=== PATIENT | male | born 1970 | race Asian ===

== ENCOUNTER 2017-03-07 17:00 | Outpatient (RCR) | payer OTHER | END 2017-03-08 15:09 | LOC: WSPT 17:00 | DX: M47.816 Spondylosis without myelopathy or radiculopathy, lumbar region (principal); M13.0 Polyarthritis, unspecified; F43.12 Post-traumatic stress disorder, chronic; F42.9 Obsessive-compulsive disorder, unspecified; R69 Illness, unspecified; Z98.890 Other specified postprocedural states | CPT/HCPCS: G8978-GP; G8979-GP; G8980-GP ==

== ENCOUNTER 2021-01-03 22:02 | Emergency (ER) | payer OTHER ==
[~2021-01-03] VITALS: Ht 170.2 cm; Wt 76.4 kg
[2021-01-03] MEDS ORDERED: BUSPAR5 MG PO (23:11)
[2021-01-03] MEDS ORDERED: GEODON 20 MG20 MG PO (23:12)
[2021-01-03] MEDS ORDERED: DEPAKOTE 125MG125 MG PO (23:12)
[2021-01-03] MEDS ORDERED: CYMBALTA 20MG20 MG PO (23:13)
[2021-01-03] MEDS ORDERED: ATARAX 10MG10 MG/TAB PO (23:14)
[2021-01-04] MEDS ORDERED: MOBIC 7.5MG7.5 MG PO (00:21)
[2021-01-04] MEDS ORDERED: FLEXERIL 1010 MG/TAB PO (00:21)
[2021-01-04 01:20] VITALS: BP 129/86; PULSE 87; TEMP 98.3
== END 2021-01-04 00:45 | disposition home or self-care (01) ==
LOC: COL.ER 22:02
DX: M54.5 Low back pain (principal); F41.9 Anxiety disorder, unspecified; F31.9 Bipolar disorder, unspecified; Z79.899 Other long term (current) drug therapy
CPT/HCPCS: J1885

== ENCOUNTER → 2023-08-27 | Outpatient (CLI) | payer OTHER ==
[~2023-08-27] MED LIST: ATARAX 10MG10 MG/TAB PO; BUSPAR5 MG PO; CYMBALTA 20MG20 MG PO; DEPAKOTE 125MG125 MG PO; FLEXERIL 1010 MG/TAB PO; GEODON 20 MG20 MG PO; MOBIC 7.5MG7.5 MG PO
[2023-08-27 15:08] LABS: BASO % 0.6 % (0.0-2.0); EOS # 0.1 K/mm3 (0.0-0.7); EOS % 1.7 % (0.0-4.0); GRAN # 2.4 K/mm3 (1.4-6.5); HEMATOCRIT 42.1 % (42.0-52.0); HEMOGLOBIN 14.3 g/dl (13.5-18.0); LYMPH # 2.3 K/mm3 (1.2-3.4); LYMPH % 43.7 % (20.0-51.0); MEAN CELL VOLUME 94 fl (80.0-100.0); MEAN CORPUSCULAR HEMOGLOBIN 32 pg (27-31); MEAN CORPUSCULAR HGB CONC 34 g/dl (33.0-37.0); MEAN PLATELET VOLUME 9.5 fl (7.4-10.4); MONO # 0.4 K/mm3 (0.1-0.6); PLATELET COUNT 247 K/mm3 (130-400); RED BLOOD COUNT 4.48 M/mm3 (4.20-5.60); REDCELL DISTRIBUTION WIDTH-CV 12.2 % (11.5-14.5)
[2023-08-27 15:23] LABS: ALBUMIN 3.6 gm/dL (3.5-5.0); BILIRUBIN,DIRECT 0.1 mg/dL (0.0-0.5); BILIRUBIN,TOTAL 0.3 mg/dL (0.2-1.2); CALCIUM 8.3 mg/dL (8.4-10.2); CREATININE, serum 0.89 mg/dL (0.72-1.25); POTASSIUM 4.4 mmol/L (3.5-4.5); TOTAL PROTEIN 6.9 gm/dL (6.2-8.1); VALPROIC ACID (DEPAKENE) 43.8 ug/mL (43.5-90.5)
[2023-08-27 16:11] LABS: CHOLESTEROL RISK RATIO 3.9
[2023-08-27 16:28] LABS: THYROID STIMULATING HORMONE 0.422 uIU/mL (0.350-4.940)
== END ==
LOC: COL.LAB 14:02
PROVIDERS: Registered Nurse
DX: F25.9 Schizoaffective disorder, unspecified (principal); Z79.899 Other long term (current) drug therapy